=== PATIENT | male | born 2000 | race Caucasian/White ===

== ENCOUNTER 2018-04-06 00:25 | Emergency (ER) | payer SELFPAY ==
--- NOTE | 2018-04-06 00:47 | Emergency Department Report ---
HPI <WILLIAM VU Reggie - Last Filed: 04/06/18 02:53> - HPI HPI: 17-year-old male presents to the emergency department via EMS with complaint of palpitations and some chest discomfort after smoking marijuana this evening. He says that this is not the first time that he has smoked marijuana or even smoked this stash of marijuana but he has previously not had any issues. He otherwise denies any past medical history. He denies any other illicit drug use. He did not take anything for her symptoms prior to arrival. No recent travel or sick contacts at home. He denies any fever, nausea or vomiting, shortness of breath. <ALEXEI HARTMANN Donald - Last Filed: 04/06/18 16:39> - General Chief Complaint: Chest Pain Time Seen by Provider: 04/06/18 00:35 ED Past Medical Hx - Past Medical History Previous Medical History?: No - Surgical History Additional Surgical History: Appendectomy, left arm surgery, testicle surgery - Social History Smoking Status: Current Some Day Smoker Substance Use Type: Marijuana <ALEXEI HARTMANN Donald - Last Filed: 04/06/18 16:39> ED Review of Systems ROS: Stated complaint: CP Other details as noted in HPI <WILLIAM VU Reggie - Last Filed: 04/06/18 02:53> ROS: Stated complaint: CP Other details as noted in HPI Comment: All other systems reviewed and negative Constitutional: denies: chills, fever Eyes: denies: eye pain, vision change ENT: denies: ear pain, throat pain Respiratory: denies: cough, wheezing Cardiovascular: chest pain, palpitations Gastrointestinal: denies: abdominal pain, vomiting Genitourinary: denies: urgency, dysuria Musculoskeletal: denies: back pain, arthralgia Skin: denies: rash, lesions Neurological: denies: headache, weakness <ALEXEI HARTMANN Donald - Last Filed: 04/06/18 16:39> Physical Exam - Physical Exam Vital Signs: Vital Signs 04/06/18 00:27 Temperature 98.2 F Pulse Rate 111 H Respiratory 19 Rate Blood Pressure 138/81 [Left] O2 Sat by Pulse 99 Oximetry <WILLIAM VU Reggie - Last Filed: 04/06/18 02:53> - Physical Exam Vital Signs: Vital Signs 04/06/18 00:27 Temperature 98.2 F Pulse Rate 111 H Respiratory 19 Rate Blood Pressure 138/81 [Left] O2 Sat by Pulse 99 Oximetry Physical Exam: GENERAL: The patient is well-developed well-nourished. HEENT: Normocephalic. Atraumatic. Patient has moist mucous membranes. EYES: Extraocular motions are intact. NECK: Supple. Trachea is midline. CHEST/LUNGS: Clear to auscultation. There is no respiratory distress noted. HEART/CARDIOVASCULAR: Regular. There is mild tachycardia. There is no obvious murmur. ABDOMEN: Abdomen is soft, nontender. Patient has normal bowel sounds. There is no abdominal distention. SKIN: Skin is warm and dry. NEURO: The patient is awake, alert, and oriented. The patient is cooperative. The patient has no focal neurologic deficits. The patient has normal speech. MUSCULOSKELETAL: There is no tenderness or deformity. There is no limitation range of motion. There is no evidence of acute injury. <ALEXEI HARTMANN S - Last Filed: 04/06/18 16:39> ED Course Vital Signs 04/06/18 00:27 Temperature 98.2 F Pulse Rate 111 H Respiratory 19 Rate Blood Pressure 138/81 [Left] O2 Sat by Pulse 99 Oximetry - Reevaluation(s) Reevaluation #1: 04/06/18 02:53 Patient resting comfortably. Patient states he feels well. Patient currently asymptomatic. Will replete potassium with 40 by mouth. Heart rate 8os <WILLIAM VU K - Last Filed: 04/06/18 02:53> Vital Signs 04/06/18 00:27 Temperature 98.2 F Pulse Rate 111 H Respiratory 19 Rate Blood Pressure 138/81 [Left] O2 Sat by Pulse 99 Oximetry <ALEXEI HARTMANN S - Last Filed: 04/06/18 16:39> ED Medical Decision Making - Lab Data Result diagrams: 04/06/18 00:47 04/06/18 00:47 <WILLIAM VU - Last Filed: 04/06/18 02:53> - Lab Data Result diagrams: 04/06/18 00:47 04/06/18 00:47 - EKG Data -: EKG Interpreted by Pa EKG shows normal: sinus rhythm, axis, intervals, QRS complexes, ST-T waves Rate: tachycardia (101 bpm) - EKG Data When compared to previous EKG there are: previous EKG unavailable Interpretation: normal EKG - Radiology Data Radiology results: image reviewed interpreted by me: Chest x-ray does not show any pneumothorax, pleural effusion, pneumonia or obvious focal consolidation. - Medical Decision Making This patient presents to the emergency department after smoking marijuana and then developing some palpitations and chest pain. However I believe the patient just got anxious about being intoxicated as he says it had been a while since he had smokes marijuana. As soon as the patient was in the emergency department with an IV placed and IV fluid running he was sleeping. EKG was normal without ST elevation MS, ischemia or dysrhythmia. Chest x-ray did not show any acute process. Patient's labs were mostly unremarkable except for some mild hypokalemia that was replaced with potassium chloride. After the patient had all of his lab and imaging results come back, he was reevaluated and says that he is feeling much better. He will be discharged home to follow up with primary care and will return to the ER with any worsening of his symptoms or any acute distress. <ALEXEI HARTMANN S - Last Filed: 04/06/18 16:39> Critical care attestation.: If time is entered above; I have spent that time in minutes in the direct care of this critically ill patient, excluding procedure time. <WILLIAM VU - Last Filed: 04/06/18 02:53> Critical Care Time: No Critical care attestation.: If time is entered above; I have spent that time in minutes in the direct care of this critically ill patient, excluding procedure time. <ALEXEI HARTMANN S - Last Filed: 04/06/18 16:39> ED Disposition <WILLIAM VU - Last Filed: 04/06/18 02:53> Is pt being admited?: No Time of Disposition: 01:43 <ALEXEI HARTMANN S - Last Filed: 04/06/18 16:39> Clinical Impression: Marijuana use, Atypical chest pain Disposition: DC- TO HOME OR SELFCARE Condition: Stable Instructions: Chest Pain (ED) Additional Instructions: Please avoid any further marijuana use or any other illicit drug use. Follow up with a primary care physician in the next few days. Return to the emergency department with any return of chest pain, worsening of symptoms, or if any acute distress. Referrals: [facility] [Outside] - 2-3 Days JESSIE CHANG MD [Staff Physician] - 2-3 Days
--- NOTE | 2018-04-06 01:46 | XRay Report ---
FINAL REPORT PROCEDURE: XR CHEST 1V AP TECHNIQUE: Chest radiograph anteroposterior view. CPT 06784 HISTORY: Chest Pain COMPARISON: No prior studies are available for comparison. FINDINGS: Heart: Normal. Mediastinum/Vessels: Normal. Lungs/Pleural space: Normal. Bony thorax: No acute osseous abnormality. Life support devices: None. IMPRESSION: No acute cardiopulmonary abnormality.
[2018-04-06 02:20] LABS: BUN/Creatinine Ratio 23; Blood Urea Nitrogen 16 mg/dL (9-20); Calcium 8.4 mg/dL (8.4-10.2); Hemolysis Index 10
[2018-04-06 02:45] LABS: Basophils % (Auto) 0.4 % (0.0-1.8); Eosinophils % (Auto) 0.6 % (0.0-4.3); Hematocrit 38.8 % (35.5-45.6); Hemoglobin 13.5 gm/dl (11.8-15.2); Lymphocytes # (Auto) 2.6 K/mm3 (1.2-5.4); Lymphocytes % (Auto) 37.5 % (13.4-35.0); Mean Corpuscular HGB Conc 35 % (32-34); Mean Corpuscular Volume 87 fl (84-94); Monocytes # (Auto) 0.7 K/mm3 (0.0-0.8); Monocytes % (Auto) 10.3 % (0.0-7.3); Platelet Count 231 K/mm3 (140-440); Red Blood Count 4.46 M/mm3 (3.65-5.03); Red Cell Distribution Width 12.7 % (13.2-15.2)
[2018-04-06 02:56] VITALS: BP 107/52
[2018-04-06] MEDS ORDERED: K-DUR PO ONE ×2 (03:01→03:07)
== END 2018-04-06 03:08 | disposition home or self-care (01) ==
LOC: ED 00:25
DX: R07.89 Other chest pain (principal); F12.10 Cannabis abuse, uncomplicated; F17.200 Nicotine dependence, unspecified, uncomplicated; Z90.89 Acquired absence of other organs
CPT/HCPCS: 36415; 71045; 80048; 84484; 85025; 93005; 93010